=== PATIENT | female | born 1980 | race Caucasian/White ===

== ENCOUNTER → 2017-05-04 | Outpatient (CLI) | payer MEDICAID ==
[~2017-05-04] MED LIST: CIPRO 500MG TA500 MG PO; LORTAB 5/500 501 TAB PO; MEDROL 4MG. DOSE4 MG PO; NOMEDS XX; PROVERA 10MG TA10 MG PO; SYNTHROID0.025 MG PO
[2017-05-04 10:38] LABS: BUN 17 mg/dL (7-18)
[2017-05-04 10:39] LABS: GFR (ESTIMATED) 81 ML/MIN (59-)
== END ==
LOC: LAB 08:18
PROVIDERS: Nurse Practitioner Family
DX: E03.9 Hypothyroidism, unspecified (principal); Z00.00 Encounter for general adult medical examination without abnormal findings; Z79.899 Other long term (current) drug therapy